=== PATIENT | female | born 1945 | race Caucasian/White ===

== ENCOUNTER → 2017-12-17 | Outpatient (CLI) | payer OTHER | LOC: M.ULTRA 15:30 | DX: I73.9 Peripheral vascular disease, unspecified (principal); I77.1 Stricture of artery; I74.3 Embolism and thrombosis of arteries of the lower extremities; J84.10 Pulmonary fibrosis, unspecified; J18.9 Pneumonia, unspecified organism; M79.604 Pain in right leg; J40 Bronchitis, not specified as acute or chronic; R05 Cough ==

== ENCOUNTER → 2018-05-31 | Outpatient (CLI) | payer OTHER | LOC: M.RAD 05-28 11:28 → M.ULTRA 08:58 | DX: J98.4 Other disorders of lung (principal); F45.8 Other somatoform disorders; I65.22 Occlusion and stenosis of left carotid artery ==

== ENCOUNTER → 2018-06-07 | Outpatient (CLI) | payer OTHER | LOC: M.ULTRA 08:00 | DX: I83.893 Varicose veins of bilateral lower extremities with other complications (principal); R25.2 Cramp and spasm; Z88.1 Allergy status to other antibiotic agents ==